=== PATIENT | female | born 2000 | race Two or more races ===

== ENCOUNTER 2021-10-06 23:25 | Emergency (ER) | payer SELFPAY ==
[~2021-10-06] VITALS: Ht 157.5 cm; Wt 81.6 kg
[2021-10-07 00:08] VITALS: BP 129/71
--- NOTE | 2021-10-07 00:15 | NUR ---
BIB FRIEND A/OX 4, C/O PAIN UPON URINATION AND SWOLLEN VAGINAL AREA
--- NOTE | 2021-10-07 00:18 | NUR ---
URINE COLLECTED AND SENT TO LAB
[2021-10-07 00:36] LABS: BILIRUBIN,URINE NEGATIVE (NEGATIVE); COLOR,URINE YELLOW (YELLOW); LEUKOCYTE ESTERASE ,URINE NEGATIVE (NEGATIVE); NITRITE, URINE NEGATIVE (NEGATIVE); PROTEIN,URINE TRACE mg/dl (NEGATIVE); UGLUCOSE NEGATIVE (NEGATIVE); UROBILINOGEN,URINE 0.2 EU/dL (0.2)
[2021-10-07] MEDS ORDERED: FLUC150T PO (00:47)
[2021-10-07] MEDS ORDERED: CLOT15CR27 TP (00:47)
--- NOTE | 2021-10-07 01:54 | NUR ---
Patient discharged to home in stable condition. Written and verbal after care instructions given. Patient verbalizes understanding of instruction. PT ambulatory with a steady gait
== END 2021-10-07 02:40 | disposition home or self-care (01) ==
LOC: ER 23:30
DX: B37.3 Candidiasis of vulva and vagina (principal); F17.200 Nicotine dependence, unspecified, uncomplicated; Z60.2 Problems related to living alone
CPT/HCPCS: 82962-TC; 84703-TC